=== PATIENT | female | born 1960 | race Caucasian/White ===

== ENCOUNTER 2017-11-05 17:57 | Emergency (ER) | payer BC ==
[2017-11-05 18:23] VITALS: BP 136/72
[2017-11-05] MEDS ORDERED: Ibuprofen TAB* 600 MG PO ONE (18:32)
--- NOTE | 2017-11-05 19:24 | UC ---
Back Pain HPI - HPI Summary HPI Summary: Patient to urgent care tonight with fever abdominal pain backache arm some sore throat and nasal congestion as well. Began sore throat nasal congestion after camping this weekend. Now has fever right-sided abdominal and right back pain she is a little bit nauseated has not had any dinner. - History of Current Complaint Chief Complaint: UCBackPain Stated Complaint: ST,FEVER,BACK PAIN Time Seen by Provider: 11/05/17 19:15 Hx Obtained From: Patient Hx Last Menstrual Period: 2 wks ago ?: No Onset/Duration: Gradual Onset, Worse Since - today Timing: Constant Pain Intensity: 5 Pain Scale Used: 0-10 Numeric Back Pain: Is Discrete @ - rlq and right side of back pain - Allergies/Home Medications Allergies/Adverse Reactions: Allergies Allergy/AdvReac Type Severity Reaction Status Date / Time No Known Allergies Allergy Verified 11/05/17 18:22 Home Medications: Home Medications Ibuprofen TAB* [Advil TAB*] 400 mg PO Q6H PRN 11/05/17 [History Confirmed ] PMH/Surg Hx/FS Hx/Imm Hx Previously Healthy: Yes - Surgical History Surgical History: Yes Surgery Procedure, Year, and Place: tubal, - Family History Known Family History: Positive: None - Social History Occupation: Employed Full-time Lives: With Family Alcohol Use: Weekly Substance Use Type: None Smoking Status (MU): Never Smoked Tobacco Review of Systems Constitutional: Fever, Chills Skin: Negative Eyes: Negative ENT: Sore Throat, Nasal Discharge, Sinus Congestion Respiratory: Negative Cardiovascular: Negative Gastrointestinal: Abdominal Pain - RLQ Genitourinary: Negative Motor: Negative Neurovascular: Negative Musculoskeletal: Negative Neurological: Negative Psychological: Negative Is Patient Immunocompromised?: No All Other Systems Reviewed And Are Negative: Yes Physical Exam Triage Information Reviewed: Yes Appearance: Well-Nourished, Ill-Appearing - mild, Pain Distress Vital Signs: Initial Vital Signs Temp 102.7 F 11/05/17 18:19 Pulse 102 11/05/17 18:19 Resp 18 11/05/17 18:19 BP 136/72 11/05/17 18:19 Pulse Ox 99 11/05/17 18:19 Vital Signs Reviewed: Yes Eye Exam: Normal Eyes: Positive: Conjunctiva Clear ENT Exam: Normal ENT: Positive: Normal ENT inspection, Hearing grossly normal, Pharyngeal erythema, Nasal congestion, TMs normal, Uvula midline. Negative: Tonsillar swelling, Tonsillar exudate, Trismus, Muffled voice, Hoarse voice, Dental tenderness, Sinus tenderness Dental Exam: Normal Neck exam: Normal Neck: Positive: Supple, Nontender, No Lymphadenopathy Respiratory Exam: Normal Respiratory: Positive: Chest non-tender, Lungs clear, Normal breath sounds, No respiratory distress, No accessory muscle use Cardiovascular Exam: Normal Cardiovascular: Positive: RRR, No Murmur, Pulses Normal, Brisk Capillary Refill Abdominal Exam: Other Abdomen Description: Positive: No Organomegaly, Soft, McBurney's Point Tenderness, Other: - right lower back pain. Negative: CVA Tenderness (R), CVA Tenderness (L) Bowel Sounds: Positive: Present Musculoskeletal Exam: Normal Musculoskeletal: Positive: Strength Intact, ROM Intact, No Edema Neurological Exam: Normal Neurological: Positive: Alert, Muscle Tone Normal Psychological Exam: Normal Skin Exam: Normal Diagnostics - Laboratory Diagnostic Studies Completed/Ordered: RST (-), ua +1 leukoesterace, +1 blood Back Pain Course/Dx - Course Course Of Treatment: npo, will drive patient to ED for further assessment of RLQ pain and fever - Differential Dx/Diagnosis Provider Diagnoses: RLQ pain, fever, enviromental allergies Discharge - Sign-Out/Discharge Documenting (check all that apply): Discharge/Admit/Transfer - Discharge Plan Condition: Stable Disposition: HOME Patient Education Materials: Fever in Adults (ED), Acute Abdominal Pain (ED) Referrals: Kendall Lee MD [Primary Care Provider] - Additional Instructions: Please report directly to the emergency department for further assessment evaluation of the right lower quadrant pain and fever - Billing Disposition and Condition Condition: STABLE Disposition: HOME
== END 2017-11-05 19:38 | disposition home or self-care (01) ==
LOC: UCEAST 17:57
DX: R10.31 Right lower quadrant pain (principal); R50.9 Fever, unspecified; T78.40XA Allergy, unspecified, initial encounter; X58.XXXA Exposure to other specified factors, initial encounter
CPT/HCPCS: 81003; 87086; 87651; 99212; A9270-GY; G0463

== ENCOUNTER 2017-11-05 19:58 | Emergency (ER) | payer BC ==
[2017-11-05 20:19] VITALS: BP 129/78
[2017-11-05] MEDS ORDERED: NS 0.9% 1000 ML* 1,000 ML IV ONE (22:17)
[2017-11-05 22:54] LABS: ABS Basophils 0 10^3/ul (0-0.2); ABS Eosinophils 0 10^3/ul (0-0.6); ABS Lymphocytes 1.5 10^3/ul (1.0-4.8); ABS Monocytes 1.3 10^3/ul (0-0.8); ABS Neutrophils 11.5 10^3/ul (1.5-7.7); ABS Nucleated RBC 0 10^3/ul; Eosinophil % 0.2 % (0-6); Hematocrit 36 % (35-47); Hemoglobin 12.1 g/dl (12.0-16.0); Lymphocyte % 10.6 % (25-47); Mean Corpuscular HGB Conc 34 g/dl (31-36); Mean Corpuscular Hemoglobin 31 pg (27-31); Mean Corpuscular Volume 92 fL (80-97); Nucleated Red Blood Cells % 0; Platelet Count 250 10^3/ul (150-450); Red Blood Count 3.89 10^6/ul (4.0-5.4); Red Cell Distribution Width 14 % (10.5-15); White Blood Count 14.5 10^3/ul (3.5-10.8)
[2017-11-05 23:15] LABS: EGFR Non-African American 70.4 (>60)
--- NOTE | 2017-11-06 03:40 | ED ---
Ronald Garrido Tiffany, scribed for Dick Aparicio MD on 11/05/17 at 2154 . Abdominal Pain/Female - HPI Summary HPI Summary: 57 y/o F referred to [facility] from Urgent Care complains of lower right abdominal pain that began three nights ago. The patient rates the pain 3/10 in severity. Symptoms aggravated and alleviated by nothing. Reports sore throat, back pain, fever (102), nasal congestion, normal bowel movements. Denies cough, dysuria, diarrhea. Treated pain with Advil. Given Motrin at Urgent Care. No hx of kidney infection or UTI. Hx of bladder infection. - History of Current Complaint Chief Complaint: EDAbdPain Stated Complaint: RT SIDE PAIN FEVER Time Seen by Provider: 11/05/17 21:34 Hx Obtained From: Patient Hx Last Menstrual Period: 2 wks ago Onset/Duration: Lasting Days - 3, Still Present Severity Currently: Mild Pain Intensity: 3 Pain Scale Used: 0-10 Numeric Location: Discrete At: RLQ Aggravating Factor(s): Nothing Alleviating Factor(s): Nothing Associated Signs and Symptoms: Positive: Negative - cough, dysuria, diarrhea, Other: - sore throat, back pain, fever (102), nasal congestion, normal bowel movements Allergies/Adverse Reactions: Allergies Allergy/AdvReac Type Severity Reaction Status Date / Time No Known Allergies Allergy Verified 11/05/17 18:22 Home Medications: Home Medications Multivitamins/Minerals TAB* [Theragran/minerals TAB*] 1 tab PO DAILY 11/05/17 [ History Confirmed 11/05/17] PMH/Surg Hx/FS Hx/Imm Hx Previously Healthy: No History: Reports: Other Problems/Disorders - Hx bladder infection Denies: Hx Kidney Infection Musculoskeletal History: Reports: Other Musculoskeletal History - ? raynauds left hand Neurological History: Reports: Other Neuro Impairments/Disorders - tingling left hand, numbness intermittent - Cancer History Hx Chemotherapy: No Hx Radiation Therapy: No - Surgical History Surgery Procedure, Year, and Place: tubal, Infectious Disease History: No Infectious Disease History: Denies: Traveled Outside the [place] in Last 30 Days - Family History Known Family History: Negative: Cardiac Disease, Hypertension, Diabetes - Social History Alcohol Use: Weekly Hx Substance Use: No Substance Use Type: Reports: None Hx Tobacco Use: No Smoking Status (MU): Never Smoked Tobacco Review of Systems Positive: Fever Positive: Sore Throat, Other - Nasal congestion Negative: Cough Positive: Abdominal Pain - lower right, Other - Normal bowel movement. Negative : Diarrhea Negative: dysuria Positive: Other - Back pain All Other Systems Reviewed And Are Negative: Yes Physical Exam - Summary Physical Exam Summary: VITAL SIGNS: Reviewed. GENERAL: Patient is a well-developed and nourished female who is lying comfortable in the stretcher. Patient is not in any acute respiratory distress. HEAD AND FACE: No signs of trauma. No ecchymosis, hematomas or skull depressions. No sinus tenderness. EYES: PERRLA, EOMI x 2, No injected conjunctiva, no nystagmus. EARS: Hearing grossly intact. Ear canals and tympanic membranes are within normal limits. MOUTH: Oropharynx within normal limits. NECK: Supple, trachea is midline, no adenopathy, no JVD, no carotid bruit, no c- spine tenderness, neck with full ROM. CHEST: Symmetric, no tenderness at palpation LUNGS: Clear to auscultation bilaterally. No wheezing or crackles. CVS: Regular rate and rhythm, S1 and S2 present, no murmurs or gallops appreciated. ABDOMEN: Soft, non-tender. No signs of distention. No rebound no guarding, and no masses palpated. Bowel sounds are normal. EXTREMITIES: FROM in all major joints, no edema, no cyanosis or clubbing. NEURO: Alert and oriented x 3. No acute neurological deficits. Speech is normal and follows commands. SKIN: Dry and warm Triage Information Reviewed: Yes Vital Signs On Initial Exam: Initial Vitals Temp Pulse Resp BP Pulse Ox 98.6 F 101 20 129/78 97 11/05/17 20:15 11/05/17 20:15 11/05/17 20:15 11/05/17 20:15 11/05/17 20:15 Vital Signs Reviewed: Yes Diagnostics - Vital Signs Vital Signs Temp Pulse Resp BP Pulse Ox 11/05/17 20:15 98.6 F 101 20 129/78 97 - Laboratory Result Diagrams: 11/05/17 22:37 11/05/17 22:37 Lab Statement: Any lab studies that have been ordered have been reviewed, and results considered in the medical decision making process. - Radiology CXR Radiology Interpretation Completed By: ED Physician - No acute disease. Pending official report. Abdominal Pain Fem Course/Dx - Course Course Of Treatment: 57 y/o F referred to [facility] from Urgent Care complains of lower right abdominal pain that began three nights ago. Pt initially refused IV as recommended. At 23:50, pt eloped from ER without talking to nurse or medical staff. - Diagnoses Provider Diagnoses: Fever, Abdominal pain Discharge - Sign-Out/Discharge Documenting (check all that apply): Discharge/Admit/Transfer - Discharge Plan Condition: Fair Disposition: ELOPEMENT Referrals: Kendall Lee MD [Primary Care Provider] - The documentation as recorded by the Ronald castro Tiffany accurately reflects the service I personally performed and the decisions made by , Dick Aparicio MD.
--- NOTE | 2017-11-06 07:30 | RAD ---
INDICATION: Fever. COMPARISON: Comparison is made with a prior CT of the chest from June 23 2013. TECHNIQUE: A portable view of the chest was obtained. FINDINGS: Cardiac and mediastinal contours appear to be within normal limits. There is a small patchy nodular infiltrate which projects over the left midlung. The lungs are underinflated and otherwise clear. No pleural effusion is seen. The results of this examination were called to the emergency department charge nurse Ivon. IMPRESSION: SMALL LEFT LUNG NODULAR INFILTRATE. RECOMMEND FOLLOW-UP CHEST X-RAYS TO RESOLUTION.
== END 2017-11-06 00:08 | disposition left against medical advice (07) ==
LOC: ED 19:58
DX: R10.30 Lower abdominal pain, unspecified (principal); R50.9 Fever, unspecified; R91.1 Solitary pulmonary nodule; Z86.19 Personal history of other infectious and parasitic diseases; Z53.21 Procedure and treatment not carried out due to patient leaving prior to being seen by health care provider
CPT/HCPCS: 36415; 71045; 80053; 83605; 85025; 86140; 87040; 87502; 99283